=== PATIENT | male | born 1960 | race Caucasian/White ===

== ENCOUNTER 2020-06-12 09:57 | Emergency (ER) | payer MEDICAID ==
[~2020-06-12] VITALS: Ht 182.9 cm; Wt 93.0 kg
[2020-06-12] MEDS ORDERED: ASA81BEC PO (10:13)
[2020-06-12] MEDS ORDERED: ALBUTEROL2.5 MG/0.1 INH (10:13)
[2020-06-12] MEDS ORDERED: STEROID INHALER (10:13)
[2020-06-12] MEDS ORDERED: IBUPROFEN 600600 M1 PO (11:13)
[2020-06-12] MEDS ORDERED: APAP W/CODEINE1 TA2 PO (11:13)
[2020-06-12 11:23] VITALS: BP 169/107
== END 2020-06-12 11:24 | disposition home or self-care (01) ==
LOC: M.ERS 09:57
DX: S80.812A Abrasion, left lower leg, initial encounter (principal); M25.572 Pain in left ankle and joints of left foot; J44.9 Chronic obstructive pulmonary disease, unspecified; I10 Essential (primary) hypertension; Z79.82 Long term (current) use of aspirin; Z79.899 Other long term (current) drug therapy; W20.8XXA Other cause of strike by thrown, projected or falling object, initial encounter; Y93.89 Activity, other specified; Y92.89 Other specified places as the place of occurrence of the external cause; Y99.8 Other external cause status